=== PATIENT | male | born 1965 | race Caucasian/White ===

== ENCOUNTER 2021-04-02 07:42 | Emergency (ER) | payer OTHER ==
[2021-04-02 09:16] LABS: BASOPHIL 0.5 % (0-2); EOSINOPHIL 2.9 % (0-5); HCT 43.7 % (42.0-52.0); LYMPHOCYTE 22.7 % (15-48); MCH 31.8 pg (25.0-31.0); MCHC 34.3 g/dL (32.0-36.0); MCV 92.8 fL (78.0-100.0); MONOCYTE 11.8 % (0-12); MPV 8.5 fL (6.0-9.5); NEUTROPHIL 61.9 % (41-80); NRBC 0; PLT 203 K/uL (150-400); RBC 4.71 M/uL (4.70-6.00); RDW 11.7 % (11.5-14.0); WBC 4.2 K/uL (4.0-10.5)
[2021-04-02 09:37] LABS: BILIRUBIN NEGATIVE (NEGATIVE); BLOOD NEGATIVE Ery/uL (NEGATIVE); CLARITY CLEAR (CLEAR); COLOR YELLOW (YELLOW); GLUCOSE (U) NORMAL (NORMAL); LEUKOCYTES NEGATIVE Leu/uL (NEGATIVE); NITRITE NEGATIVE (NEGATIVE); PROTEIN NEGATIVE (NEGATIVE); UROBILINOGEN 0.2 mg/dL (0.2-1.0); pH 7.5 (5.0-9.0)
[2021-04-02 09:56] LABS: ALBUMIN 3.6 g/dL (3.4-5.0); ALKALINE PHOSHATASE 93 U/L (46-116); ALT 20 U/L (16-63); AST 12 U/L (15-37); BILIRUBIN - TOTAL 0.4 mg/dL (0.2-1.0); BUN 13 mg/dL (7-18); BUN/CREAT RATIO (CALC) 11.8 RATIO; CHLORIDE 106 mmol/L (98-107); CHOLESTEROL 196 mg/dL (<200); CO2 (BICARBONATE) 29 mmol/L (21-32); GLOBULIN (CALCULATION) 3.6 g/dL; GLUCOSE 85 mg/dL (74-106); HDL 38 mg/dL (40-60); LDH 121 U/L (85-227); LDL - DIRECT 126 mg/dL (<100); MAGNESIUM 2.1 mg/dL (1.8-2.4); POTASSIUM 4.2 mmol/L (3.5-5.1); TOTAL PROTEIN 7.2 g/dL (6.4-8.2); TRIGLYCERIDES 92 mg/dL (<150)
[2021-04-02 09:57] LABS: C-REACTIVE PROTEIN < 0.20 mg/dL (<=0.90)
== END 2021-04-02 11:30 | disposition home or self-care (01) ==
LOC: FER 07:42
PROVIDERS: Emergency Medicine
DX: R55 Syncope and collapse (principal); R20.2 Paresthesia of skin
CPT/HCPCS: 36415; 70450; 80053; 80061; 81003; 82728; 83615; 83735; 84145; 84443; 85025; 85379; 86140; 93005; J7030